=== PATIENT | male | born 1935 ===

== ENCOUNTER 2017-06-01 22:54 | Inpatient (IN) ==
[2017-06-01] MEDS ORDERED: hydrALAZINE 20 MG/1 ML VIAL IV STA (23:42)
[2017-06-01] MEDS ORDERED: ORPHENADRINE 60 MG/2 ML VIAL IM STA (23:42)
[2017-06-01] MEDS ORDERED: KETOROLAC 30 MG/1 ML VIAL IV STA (23:42)
[2017-06-01] MEDS ORDERED: methylPREDNISolone SOD SUC 125 MG/2 ML VIAL IV STA (23:42)
[2017-06-02] MEDS ORDERED: ONDANSETRON 4 MG/2 ML VIAL IV ONE
[2017-06-02] MEDS ORDERED: HYDROmorphone 2 MG/1 ML VIAL IV ONE
[2017-06-02] MEDS ORDERED: ORPHENADRINE 60 MG/2 ML VIAL ONE (00:06)
[2017-06-02] MEDS ORDERED: KETOROLAC 30 MG/1 ML VIAL ONE (00:06)
[2017-06-02] MEDS ORDERED: hydrALAZINE 20 MG/1 ML VIAL ONE (00:06)
[2017-06-02] MEDS ORDERED: methylPREDNISolone SOD SUC 125 MG/2 ML VIAL ONE (00:06)
[2017-06-02 00:26] LABS: Basophils % 0.3 % (0.0-0.8); Eosinophils % 0.2 % (0.00-10.9); Hematocrit 25.8 VOL% (42.0-52.0); Hemoglobin 8.4 GM/DL (14.0-18.0); Immature Granulocytes % 0.5 %; Immature Granulocytes Absolute 0.03 #; Lymphocytes # 0.8 10*3/uL (1.4-4.0); Lymphocytes % 14.3 % (21.2-54.2); Mean Corpuscular HGB Conc 32.6 GM/DL (32-36); Mean Corpuscular Hemoglobin 29 PG (27-34); Mean Corpuscular Volume 88.7 FL (87-102); Mean Platelet Volume 10.3 FL (9.6-12.0); Monocytes # 0.3 10*3/uL (0.11-0.8); Monocytes % 4.9 % (1.7-12.7); Neutrophils # 4.7 10*3/uL (1.4-7.4); Neutrophils % 79.8 % (38.7-73.9); Platelet Count 246 T/CUMM (130-400); Red Blood Count 2.91 MC/CUMM (3.8-5.5); Red Cell Distribution Width 14.8 % (9.3-17.3); White Blood Count 5.9 T/CUMM (4-12)
[2017-06-02 00:51] LABS: Alanine Aminotransferase < 9 U/L (16-61); Albumin 2.7 G/DL (3.4-5.0); Alkaline Phosphatase 94 U/L (45-117); Aspartate Amino Transferase 33 U/L (0-37); Bilirubin,Total < 0.39 MG/DL (0.2-1.0); Blood Urea Nitrogen 8 MG/DL (7-18); Calcium 7.6 MG/DL (8.5-10.1); Glucose 116 MG/DL (74-106); Osmolality,Calculated 277.4 MOS/KG (273-304); Potassium 3.4 MMOL/L (3.5-5.1); Sodium 140 MMOL/L (136-145); Total Protein 5.9 G/DL (6.4-8.3); Troponin I Only 0.034 NG/ML (0.00-0.045)
[2017-06-02] MEDS ORDERED: ONDANSETRON 4 MG/2 ML VIAL ONE (01:25)
[2017-06-02] MEDS ORDERED: HYDROmorphone 2 MG/1 ML VIAL ONE (01:26)
[2017-06-02 14:20] LABS: Ferritin 72.1 ng/ml (26-388); Total Protein 6.9 G/DL (6.4-8.3)
[2017-06-02] MEDS ORDERED: SKIN HEALING OINT (AQUAPHOR) 50 GM TUBE TOP PRN (14:51)
[2017-06-02 14:57] LABS: Carcinoembryonic Antigen 1.4 NG/ML (0.0-5.0)
[2017-06-02 17:50] LABS: Folate 8.8 NG/ML (5.4-24.0)
[2017-06-03 04:38] LABS: Apearance,Urine Slightly Hazy (Clear); Bilirubin,Urine Negative (Negative); Blood, Urine Moderate mg/dL (Negative); Glucose,Urine (UA) Negative (Negative); Granular Casts,Urine 4 /LPF (0-1); Hyaline Casts,Urine 2 /LPF (0-3); Ketones,Urine Negative (Negative); Mucus,Urine Many /LPF (Occasional); Nitrite,Urine Negative (Negative); Protein,Urine 30 MG/DL; RBC,Urine 3 /HPF (0-4); Urine Color Yellow (Yellow); Urine Specific Gravity 1.032 (1.001-1.035); WBC,Urine <1 /HPF (0-6)
[2017-06-03 05:50] LABS: Basophils % 0.2 % (0.0-0.8); Eosinophils % 0.3 % (0.00-10.9); Hemoglobin 8.8 GM/DL (14.0-18.0); Immature Granulocytes % 0.2 %; Immature Granulocytes Absolute 0.01 #; Lymphocytes # 0.7 10*3/uL (1.4-4.0); Lymphocytes % 11.3 % (21.2-54.2); Mean Corpuscular HGB Conc 33.8 GM/DL (32-36); Mean Corpuscular Hemoglobin 29 PG (27-34); Mean Corpuscular Volume 86.1 FL (87-102); Mean Platelet Volume 11.1 FL (9.6-12.0); Monocytes # 0.5 10*3/uL (0.11-0.8); Monocytes % 8.6 % (1.7-12.7); Neutrophils % 79.4 % (38.7-73.9); Platelet Count 240 T/CUMM (130-400); Red Blood Count 3.02 MC/CUMM (3.8-5.5); Red Cell Distribution Width 15.1 % (9.3-17.3); White Blood Count 6.3 T/CUMM (4-12)
[2017-06-03 06:16] LABS: Calcium 8.5 MG/DL (8.5-10.1); Osmolality,Calculated 269.1 MOS/KG (273-304); Potassium 3.7 MMOL/L (3.5-5.1)
[2017-06-03] MEDS ORDERED: NON-FORMULARY MEDICATION (Enzalutamide [Xtandi] 160 MG) PO SCH (09:00)
[2017-06-03] MEDS: LISINOPRIL 10 MG TABLET PO SCH (09:27)
[2017-06-03] MEDS: FLUoxetine 20 MG CAPSULE PO SCH (09:27)
[2017-06-03] MEDS ORDERED: MORPHINE 2 MG/1 ML SYRINGE IV PRN ×2 (11:16)
[2017-06-03] MEDS: SODIUM CHLORIDE 0.9% 1,000 ML IV SCH (17:10)
[2017-06-04] MEDS: SODIUM CHLORIDE 0.9% 1,000 ML IV SCH ×2 (00:54→06:10)
[2017-06-04 08:48] VITALS: BP 180/81
[2017-06-04] MEDS ORDERED: BICALUTAMIDE 50 MG TABLET PO SCH (09:00)
[2017-06-04] MEDS: LISINOPRIL 10 MG TABLET PO SCH (09:37)
[2017-06-04] MEDS: FLUoxetine 20 MG CAPSULE PO SCH (09:37)
[2017-06-05 06:18] LABS: Cancer Antigen 19-9 < 1.2 U/ML (0-37)
[2017-06-06 09:07] LABS: Albumin (SPE) 3.8 G/DL (3.2-5.3); Albumin (SPE) Rel % 54.9 %; Alpha 1 (SPE) 0.3 G/DL (0.1-0.4); Alpha 1 (SPE) Rel % 3.6 %; Alpha 2 (SPE) 0.8 G/DL (0.4-1.0); Alpha 2 (SPE) Rel % 11.3 %; Beta (SPE) 0.9 G/DL (0.5-1.1); Beta (SPE) Rel % 13.6 %; Gamma (SPE) 1.1 G/DL (0.7-1.7); Total Protein (Chem) 6.9 G/DL (6.4-8.3)
[2017-06-06 09:08] LABS: Gamma (SPE) Rel % 16.6 %
[2017-06-06 09:12] LABS: Immuno Free Light Chain Kappa 2.61 MG/DL (0.33-1.94); Immuno Free Light Chain Lambda 1.96 MG/DL (0.57-2.63); Immuno Free Light Chain Ratio 1.33 MG/DL (0.26-1.65)
== END 2017-06-04 13:30 | disposition home health service (06) | DRG 543 ==
LOC: EDUNIT# → EDBD → N.ED 22:54 → N.EDINP 06-02 02:02 → SUATTDRO 06-02 02:02 → N.4E 06-02 07:12
PROVIDERS: ADMIT Internal Medicine; ATTEND Hospitalist